=== PATIENT | female | born 1950 | race Caucasian/White ===

== ENCOUNTER 2020-05-17 10:26 | Outpatient (CLI) | payer MEDICARE, BC, SELFPAY ==
[2020-05-17 11:16] LABS: Alanine Aminotransferase 27 U/L (0-33); Albumin Level 4.3 g/dL (3.5-5.2); Alkaline Phosphatase 72 IU/L (35-105); Anion Gap 12.5 (5-19); Aspartate Amino Transferase 20 U/L (0-32); Blood Urea Nitrogen 19 mg/dL (8-23); Calcium 8.6 mg/dL (8.5-10.5); Carbon Dioxide 26 mmol/L (22-29); Chloride 100 mmol/L (98-107); Globulin 2.6 g/dL (1.3-4.6); Glomerular Filtration Rate 71.1 mL/min (90-130); Glucose 87 mg/dL (65-115); Osmolality Calculated 274 mOsm/kg (285-295); Potassium 4.5 mmol/L (3.5-5.1); Sodium 134 mmol/L (136-145); Total Bilirubin 0.4 mg/dL (0.15-1.2); Total Protein 6.9 g/dL (6.6-8.7)
== END 2020-05-17 10:27 | disposition home or self-care (01) ==
LOC: LAB 10:30
PROVIDERS: Visit Provider Internal Medicine Rheumatology
DX: M15.9 Polyosteoarthritis, unspecified (principal)
CPT/HCPCS: 80053

== ENCOUNTER 2020-10-02 10:12 | Outpatient (CLI) | payer MEDICARE, BC, SELFPAY ==
--- NOTE | 2020-10-02 10:16 | MM_ITS ---
WS: [id number] BILATERAL DIGITAL SCREENING MAMMOGRAPHY WITH CAD CLINICAL INFORMATION: SCREENING HISTORY: Screening mammogram. No current complaints. COMPARISON: [id number] TECHNIQUE: Bilateral CC and MLO views. FINDINGS: Scattered fibroglandular densities bilaterally. 6 mm asymmetric density posterior depth right breast best seen on the cc view. This is new from previous. Recommend spot compression views and ultrasound for further evaluation. Benign calcification right breast. Vascular calcifications. Left breast is unremarkable and unchanged. MM/[place] [id number] IMPRESSION: BI-RADS: 0-Incomplete: Need additional imaging evaluation FOLLOW UP: Need Additional Imaging RECOMMEND RIGHT BREAST DIAGNOSTIC MAMMOGRAPHY AND ULTRASOUND FOR FURTHER EVALUA TION.
== END 2020-10-02 10:13 | disposition home or self-care (01) ==
LOC: RADSHAW 10:15
PROVIDERS: Visit Provider Family Medicine
DX: Z12.31 Encounter for screening mammogram for malignant neoplasm of breast (principal); N64.89 Other specified disorders of breast
CPT/HCPCS: 77067

== ENCOUNTER 2020-10-24 07:51 | Outpatient (CLI) | payer MEDICARE, BC, SELFPAY ==
--- NOTE | 2020-10-24 07:57 | US_ITS ---
WS: [id number] RIGHT DIGITAL MAMMOGRAPHY WITH CAD CLINICAL INFORMATION: RT BREAST ASYMMETRY COMPARISON: October 02, 2020 TECHNIQUE: 2 views of the right breast were obtained. FINDINGS: Scattered fibroglandular densities of the right breast. Again seen is the 6 mm asymmetric density pos terior depth right breast best seen on the cc view. Benign calcifications right breast. Ultrasound is pending ULTRASOUND BREAST RIGHT TECHNIQUE: Ultrasound right breast focused area of concern. CLINICAL INFORMATION: RT BREAST ASYMMETRY COMPARISON: None. FINDINGS: Ultrasound breast right 11:00 to 1:00 position. Incidental 3 mm calcification at the 12:00 position. No evidence of underlying cystic or solid mass. No suspicious lesions. No lesions to target for biops y. US/US breast RT limited* [id number] IMPRESSION: BI-RADS: 2-Benign FOLLOW UP: 1 Year Follow-up Recommend return to annual screening mammography.
== END 2020-10-24 07:52 | disposition home or self-care (01) ==
LOC: RADSHAW 07:55
PROVIDERS: Visit Provider Family Medicine
DX: N64.89 Other specified disorders of breast (principal)
CPT/HCPCS: 76642; 77065

== ENCOUNTER → 2021-04-16 13:11 | Outpatient (BNVA) | payer MEDICARE, BC, SELFPAY | PROVIDERS: Visit Provider Podiatrist Foot & Ankle Surgery | DX: M79.673 Pain in unspecified foot (principal); M21.612 Bunion of left foot; M21.611 Bunion of right foot | CPT/HCPCS: 73630 ==

== ENCOUNTER 2021-05-09 11:30 | Outpatient (CLI) | payer MEDICARE, BC, SELFPAY | END 2021-05-09 11:31 | disposition home or self-care (01) | LOC: SPT 11:31 | PROVIDERS: Visit Provider Podiatrist Foot & Ankle Surgery | DX: Z46.89 Encounter for fitting and adjustment of other specified devices (principal); M21.611 Bunion of right foot; M21.612 Bunion of left foot; M21.621 Bunionette of right foot; M21.622 Bunionette of left foot; M20.41 Other hammer toe(s) (acquired), right foot; M20.42 Other hammer toe(s) (acquired), left foot; M21.41 Flat foot [pes planus] (acquired), right foot; M21.42 Flat foot [pes planus] (acquired), left foot | CPT/HCPCS: 97760; L3030 ==

== ENCOUNTER 2021-10-17 13:44 | Outpatient (CLI) | payer MEDICARE, BC, SELFPAY ==
--- NOTE | 2021-10-17 13:58 | MM_ITS ---
WS: [id number] BILATERAL SCREENING DIGITAL MAMMOGRAM WITH CAD HISTORY: SCREENING COMPARISON: 10/24/2020 and 10/02/2020 and 08/16/2019 Bilateral CC and MLO views submitted. Computer aided detection analyzed. Breast composition: There are scattered areas of fibroglandular density. No suspicious masses, microc alcifications or architectural distortion. Benign coarse calcifications in each breast. There are mul tiple small lymph nodes in the LEFT axilla which have been present on prior studies with no interval change. MM/[place] [id number] IMPRESSION: BI-RADS: 2-Benign FOLLOW UP: 1 Year Follow-up
== END 2021-10-17 13:45 | disposition home or self-care (01) ==
LOC: RADSHAW 13:56
PROVIDERS: Visit Provider Family Medicine
DX: Z12.31 Encounter for screening mammogram for malignant neoplasm of breast (principal)
CPT/HCPCS: 77067

== ENCOUNTER → 2021-12-01 08:52 | Outpatient (BNVA) | payer MEDICARE, BC, SELFPAY | PROVIDERS: Visit Provider Podiatrist Foot & Ankle Surgery | DX: Z01.818 Encounter for other preprocedural examination (principal); Z20.822 Contact with and (suspected) exposure to COVID-19; M21.611 Bunion of right foot; M21.612 Bunion of left foot; M21.621 Bunionette of right foot; M21.622 Bunionette of left foot; M20.41 Other hammer toe(s) (acquired), right foot; M20.42 Other hammer toe(s) (acquired), left foot; M21.41 Flat foot [pes planus] (acquired), right foot; M21.42 Flat foot [pes planus] (acquired), left foot | CPT/HCPCS: 87635 ==

== ENCOUNTER 2021-12-05 05:49 | Day surgery (SDC) | payer MEDICARE, BC, SELFPAY ==
[2021-12-04 14:28] VITALS: BMI 23.3
--- NOTE | 2021-12-05 | SCC_ITS ---
Procedure done: Bunionectomy left foot 4 seconds of fluoroscopic guidance, for a cumulative dose of 0.085 mGy, was provided to Dr. Pyle by the radiology department. C-arm images of the left foot were saved for the patient's permanent record. [facility]
--- NOTE | 2021-12-05 06:35 | ANES.PREANE2 ---
Pre-Anesthetic Assessment Height/Weight: Height 1.68 m Weight 65.771 kg Preop Diagnosis: Left painful bunion Operation Date: 12/05/21 07:00 Proposed Procedures p Bunionectomy 68329/m21.612(Left) - Rory Pyle DPM s Double Osteotomy(Left) - Rory Pyle DPM Familial anesthetic complications: none Was Beta Jacinta taken within 24 hours: N/A Was Clonidine taken within 24 hours: N/A Last intake: Intake Last Liquid Date 12/04/21 Last Liquid Time 14:00 Last Solid Date 12/04/21 Last Solid Time 14:00 Social Alcohol (wine w/ dinner) and No alcohol Exam alert, oriented x 3, clear to auscultation bilaterally and regular rate & rhythm Airway Mallampati: Class I Dentition: full Pulmonary None reported CV/HEM None reported None reported Hepatic None reported GI None reported Metabolic None reported Musc/skel None reported Neuropsych None reported Anesthetic Plan ASA status: 1 Anesthesia: MAC Risk of > 500 ml blood loss (7ml/kg in children): No Medications/Allergies Home Medications Medication Instructions Recorded Confirmed Last Taken Type Sole supports #1 ea 04/16/21 12/01/21 Unknown Rx meloxicam 15 mg tablet 15 mg PO DAILY 04/16/21 12/04/21 12/04/21 History Sole supports #1 ea 04/17/21 12/01/21 Unknown Rx oxycodone-acetaminophen 10 mg-325 1 tab PO Q6H PRN 7 Days #28 tab 12/01/21 12/05/21 Unknown Rx mg tablet (Percocet) Allergies Allergy/AdvReac Type Severity Reaction Status Date / Time No Known Allergies Allergy Verified 12/01/21 08:32 [facility] Anesthesia Medical History Arthritis Social History Smoking and tobacco status: never smoked Data Anesthesia Cardiac Studies: No Data to Display
[2021-12-05] MEDS: sodium chloride 0.9% 1,000 ML 30 ML IV (06:39)
--- NOTE | 2021-12-05 06:40 | W.PM.OPSUD ---
Surgery/Procedure H&P Update DATE OF PROCEDURE: December 05, 2021 DATE H&P PERFORMED: 12/01/21 CHANGES TO PREVIOUS DOCUMENTATION: none PREOP DIAGNOSIS: Left painful bunion PLANNED PROCEDURE: Operation Date: 12/05/21 07:00 Proposed Procedures p Bunionectomy 38372/m21.612(Left) - Rory Pyle DPM s Double Osteotomy(Left) - Rory Pyle DPM
[2021-12-05] MEDS: CELEcoxib 200 mg Capsule 400 MG PO (06:46)
[2021-12-05] MEDS: gabapentin 300 mg Capsule PO (06:47)
--- NOTE | 2021-12-05 06:53 | XR_ITS ---
WS: [id number] Exam: XR foot LT min 3V* [id number] Date/Time of Exam: 12/05/2021 8:51 AM Reason For Exam: post op Comparison 04/16/2021. There is an osteotomy involving the medial distal first metatarsal with a single screw in place in th e metatarsal. There is also an osteotomy with plate and screw fixation involving the proximal phalanx of the first digit. Alignment appears satisfactory. No other postoperative changes are noted. [employer] Grade Mathematics Teacher ior calcaneal spur. XR/XR foot LT min 3V* [id number] IMPRESSION: 1. Postoperative changes of bunion repair. Alignment appears satisfactory.
--- NOTE | 2021-12-05 06:54 | P.OP_ITS ---
Operative Report Date of procedure: December 05, 2021 Pre-op diagnosis: Bunion left foot Post-op diagnosis: Same Procedure done: Bunionectomy left foot Specimens removed/disposition: None Pathology: None Surgeon: Rory Pyle D.P.M. Receptionist Nurse: Sussy Estimated blood loss: 5 See intraoperative documentation, approximately 53 minutes IV fluids: 0 Urine output: None Complications: None Brief History: Patient is a pleasant 71-year-old female who has had progressive pain with her left bunion deformity that is no longer alleviated by wide accommodative shoes, orthotics, stretching, activity modifications and NSAIDs [id number]. Would like to proceed with surgical intervention. Risks include pain, bleeding, nu mbness, infection, chronic swelling, surgical site dehiscence, delayed union, malunion, nonunion, transfer pressure, altered mechanics, damage to adjacent soft tissue structures, hallux varus, decreased range of motion at the first metatarsophalangeal joint. Need for further surgical intervention. Patient is agreeable wishes to proceed. N.p.o. since midnight. Covid screen negative. Informed consent signed by patient and myself. I initialed her left lower extremity. No guarantees written, expressed or implied. Patient wishes to proceed. She is accompanied by her . Procedure: Under mild sedation the patient was brought to the operating room and remained on the gurney in supine position. A timeout was performed. Anesthesia was then administered by the anesthesia service. Local anesthesia injected by myself consisting of 20 cc of 0.5% Marcaine plain. Well-padded pneumatic tourniquet applied to the left ankle. The left lower extremity was then scrubbed, prepped and draped utilizing normal aseptic technique. Left foot was then exanguinated with a Esmarch bandage and a tourniquet inflated to 250 mmHg. Attention was directed to the left bunion deformity where a linear longitudinal incision was made medial and parallel to the extensor houses longus tendon at the left foot transversing the metatarsophalangeal joint through skin with dissection carried down through subcutaneous tissue to the layer of periosteum and joint capsule utilizing accommodation of blunt and sharp technique. Care was taken to retract and preserve neurovascular and tendinous structures. All bleeders were ligated and cauterized as necessary. Linear capsulotomy was performed in the head of the first metatarsal and base of the proximal phalanx were freed from their soft tissue attachments. Attention was then directed to the left first intermetatarsal space where a lateral release was performed through minimal incision dorsally. This incision was flushed and closed with 4- 0 nylon. Attention was then redirected to the medial aspect of the left first metatarsal head where the osseous prominence and hypertrophic bone was transected utilizing a sagittal saw this was passed in operative field. Next a guidewire was inserted into the medial aspect of the first metatarsal head from medial to lateral to act as an axis guide followed by a chevron osteotomy with the apex pointed distally through and through. The head of the first metatarsal was translated laterally in a more anatomic corrected position followed by fixation utilizing standard AO technique from dorsal proximal to plantar distal not relating the first metatarsophalangeal joint utilizing a [place] 28 3.0 headed 18 mm screw with excellent bony apposition and compression noted. The remaining shelf medially was transected and all rough edges were smoothed followed by flush of saline solution. Attention was then directed to the diaphyseal portion of the left proximal phalanx of the great toe where a Chandler osteotomy was performed maintaining a lateral cortical hinge and fixation utilizing a 10 mm step-off [place] 28 staple with excellent bony apposition and compression noted. The hallux was in a rectus position and the bunion deformity reduced. Positioning of hardware confirmed excellent placement without violating the first metatarsophalangeal joint all three planes utilizing intraoperative fluoroscopy. The medial incision was flushed with saline solution and closed in a layered fashion with capsule and periosteum reapproximated with 3-0 Vicryl, subcutaneous tissue reapproximated with 4-0 Vicryl and skin closed with 4-0 nylon. Exparel infiltrated in a grid like fashion total of 10 cc of Exparel expanded with additional 10 cc of Marcaine. Incision was then dressed with Adaptic, sterile 4 x 4, Kerlix, Jamal wrap and cam boot was applied. Tourniquet was then deflated and a prompt hyperemic response was noted to the distal digits of the left foot. Patient tolerated the procedure and anesthesia well and was transferred to the PACU with vital signs stable and vascular status intact. Following a period of postoperative monitoring she will be discharged home was given at home care instructions as well as my cell phone number to contact me with any questions or concerns.
[2021-12-05 08:13] VITALS: BP 152/79; PULSE 71; RESP 11; TEMP 36.1; O2SAT 98
[2021-12-05 08:18] VITALS: BP 147/112; PULSE 79; RESP 16; O2SAT 96
[2021-12-05 08:23] VITALS: BP 146/125; PULSE 73; RESP 16; TEMP 36.4; O2SAT 97
[2021-12-05 08:31] VITALS: BP 163/83; PULSE 73; RESP 16; TEMP 36.6; O2SAT 94
[2021-12-05 08:44] VITALS: BP 157/87; PULSE 70; RESP 16; TEMP 36.6; O2SAT 97
--- NOTE | 2021-12-05 09:12 | SUR.PHASEII ---
09 pt unable to wear pants with cam boot and sent to house to get skirt from home 916 pt still awaiting for something to wear preferable a skirt so the cam boot will fit to go home
--- NOTE | 2021-12-05 12:40 | ANE.PACU2 ---
Inpatient post-anesthesia follow up: Airway intact: Yes Vital signs: Temperature 97.8 F Pulse Rate 70 Respiratory Rate 16 Blood Pressure 157/87 Pulse Oximetry 97 Oxygen Delivery Me thod Room Air Oxygen Flow Rate Fraction of Inspir ed Oxygen Hydration adequate: Yes Nausea and vomiting: No Pain level: 2 Mental status: Baseline
== END 2021-12-05 09:35 | disposition home or self-care (01) ==
PROVIDERS: Visit Provider Podiatrist Foot & Ankle Surgery
PROC: (CPT 28297; principal; 2021-12-05 07:00)
PROC: (CPT 28299; 2021-12-05 07:00)
DX: M21.612 Bunion of left foot (principal)
CPT/HCPCS: 28299; 73630; 76000; C1713; C9290; J0690; J2250; J2704; J3490; J7030

== ENCOUNTER → 2021-12-24 08:25 | Outpatient (BNVA) | payer MEDICARE, BC, SELFPAY | PROVIDERS: Visit Provider Podiatrist Foot & Ankle Surgery | DX: Z48.89 Encounter for other specified surgical aftercare (principal) | CPT/HCPCS: 73630 ==

== ENCOUNTER → 2022-01-01 13:22 | Outpatient (BNVA) | payer MEDICARE, BC, SELFPAY | PROVIDERS: Visit Provider Podiatrist Foot & Ankle Surgery | DX: Z48.89 Encounter for other specified surgical aftercare (principal); Z01.818 Encounter for other preprocedural examination | CPT/HCPCS: 73630 ==

== ENCOUNTER → 2022-01-15 12:50 | Outpatient (BNVA) | payer MEDICARE, BC, SELFPAY | PROVIDERS: Visit Provider Podiatrist Foot & Ankle Surgery | DX: Z98.890 Other specified postprocedural states (principal); M21.611 Bunion of right foot; M21.612 Bunion of left foot; M21.621 Bunionette of right foot; M21.622 Bunionette of left foot; M20.41 Other hammer toe(s) (acquired), right foot; M20.42 Other hammer toe(s) (acquired), left foot; M21.41 Flat foot [pes planus] (acquired), right foot; M21.42 Flat foot [pes planus] (acquired), left foot | CPT/HCPCS: 73630 ==

== ENCOUNTER → 2022-02-19 14:24 | Outpatient (BNVA) | payer MEDICARE, BC, SELFPAY | PROVIDERS: Visit Provider Podiatrist Foot & Ankle Surgery | DX: L60.3 Nail dystrophy (principal) | CPT/HCPCS: 73630; 99213 ==

== ENCOUNTER 2022-06-01 12:02 | Outpatient (CLI) | payer MEDICARE, BC, SELFPAY ==
--- NOTE | 2022-06-01 12:10 | USCV_ITS ---
Martha Chaudhry Age: 72 Gender: F : 1950 Exam Date: 06/01/2022 12:43 Ordering Phys: Sonam Gonzales MD Technologist: Zoe Nelson Exam Location: [facility] [place] Indication: Murmur previously undiagnosed BP: 137 / 80 HR: 70 Rhythm: Sinus Technical Quality: Adequate MEASUREMENTS (Male / Female) Normal Values 2D ECHO LV Diastolic Diameter PLAX 4.0 cm 4.2 - 5.9 / 3.9 - 5.3 cm LV Systolic Diameter PLAX 2.4 cm IVS Diastolic Thickness 0.9 cm 0.6 - 1.0 / 0.6 - 0.9 cm IVS Systolic Thickness 1.2 cm LVPW Diastolic Thickness 1.0 cm 0.6 - 1.0 / 0.6 - 0.9 cm LVPW Systolic Thickness 1.1 cm LVOT Diameter 2.0 cm LV Ejection Fraction 2D Teich 72.0 % LV Ejection Fraction MOD 2C 75.5 % LV Ejection Fraction 2C AL 77.5 % LA Diameter 3.5 cm LA Width 2.9 cm LA Height 5.0 cm RA Width 3.3 cm RA Height 5.5 cm Aorta at Sinotubular Diameter 2.5 cm IVC Diameter 2.1 cm M-MODE MV E Point Septal Separation 0.5 cm DOPPLER AV Peak Velocity 245.7 cm/s LVOT Peak Velocity 128.0 cm/s AV Area Cont Eq vti 1.5 cm squared AV Area Cont Eq pk 1.6 cm squared MV Peak Velocity 108.0 cm/s MV Area PHT 3.3 cm squared Mitral E to A Ratio 1.1 MV E' Velocity 108.0 cm/s TR Peak Velocity 117.0 cm/s TR Peak Gradient 5.5 mmHg Right Atrial Pressure 3.0 mmHg Pulmonary Artery Systolic Pressu 8.5 mmHg PV Peak Velocity 77.0 cm/s RV Acceleration Time 0.1 s RV Ejection Time 0.3 s RV AcT/ET 0.3 FINDINGS Left Ventricle Normal left ventricular size. LV systolic function is normal with EF of 55-60%. No regional wall motion abnormalities. Right Ventricle The right ventricle is normal in size and function. Right Atrium The right atrium is normal in size. Left Atrium The left atrium is normal in size. Mitral Valve Mitral valve is thickened. Trace mitral regurgitation. Aortic Valve Aortic valve is thickened. Mild aortic regurgitation. Mild aortic stenosis with aortic valve area 1.6 cm squared and a mean gradient across mitral valve of 11.5 mmHg. Tricuspid Valve Mild tricuspid regurgitation. Insufficient TR jet to calculate RVSP. Pulmonic Valve Not well-visualized. Mild pulmonic regurgitation. Pericardium Normal pericardium without effusion. Aorta Normal ascending aorta dimension. IVC CONCLUSIONS LV systolic function is normal with EF of 55 to 60%. Mitral valve is thickened. Trace mitral regurgitation. Aortic valve is thickened. Mild aortic regurgitation. Mild aortic stenosis. Mild tricuspid regurgitation. Mild pulmonic regurgitation. No comparison studies are available Nahum Smart MD (Electronically Signed) Final Date: 11 June 2022 11:48 S
== END 2022-06-01 12:03 | disposition home or self-care (01) ==
LOC: RAD 12:03
PROVIDERS: Visit Provider Family Medicine
DX: R01.1 Cardiac murmur, unspecified (principal); I08.3 Combined rheumatic disorders of mitral, aortic and tricuspid valves
CPT/HCPCS: 93306

== ENCOUNTER → 2022-08-03 08:05 | Outpatient (BNVA) | payer MEDICARE, BC, SELFPAY | PROVIDERS: Visit Provider Podiatrist Foot & Ankle Surgery | DX: M21.611 Bunion of right foot (principal) | CPT/HCPCS: 73630; 99213; 99215 ==

== ENCOUNTER 2022-08-28 08:50 | Day surgery (SDC) | payer MEDICARE, BC, SELFPAY ==
[2022-08-28] VITALS (10 sets, daily range): BP systolic 100–143; BP diastolic 54–77; PULSE 62–88; RESP 12–18; TEMP 36.6–36.9; O2SAT 94–100
--- NOTE | 2022-08-28 | SCC_ITS ---
Procedure done: Bunionectomy with double osteotomy, right foot. CPT code 83682 3 seconds of fluoroscopic guidance, for a cumulative dose of 0.062 mGy, was provided to Dr. Pyle by the radiology department. C-arm images of the foot were saved for the patient's permanent record. [facility]
--- NOTE | 2022-08-28 | XR_ITS ---
WS: [id number] C-ARM RADIOGRAPHS RIGHT FOOT; 2 IMAGES HISTORY: Bunionectomy with double osteotomy, right foot. COMPARISON: 08/03/2022 Intraoperative imaging during bunionectomy. XR/XR foot RT 2V [id number] IMPRESSION: Intraoperative imaging during bunionectomy.
--- NOTE | 2022-08-28 09:27 | P.ANESASSM_ITS ---
Pre-Anesthetic Assessment Height/Weight: Height 1.68 m Weight 63.503 kg Preop Diagnosis: Right bunion Operation Date: 08/28/22 10:15 Proposed Procedures p Right bunionectomy with double osteotomy 14465,M20.11,M21.612(Right) - Rory Pyle DPM s Double Osteotomy(Right) - Rory Pyle DPM Familial anesthetic complications: NOne Was Beta Jacinta taken within 24 hours: N/A Was Clonidine taken within 24 hours: N/A Last intake: > 8hrs Social Alcohol (1 drink a night) and No tobacco Exam alert, oriented x 3, clear to auscultation bilaterally and regular rate & rhythm murmur Airway Mallampati: Class II Dentition: full CV/HEM Echo 22 - Ef 60%, trace MVR, Mild AVR and , Mild TVR and PVR Anesthetic Plan ASA status: 2 Anesthesia: MAC Risk of > 500 ml blood loss (7ml/kg in children): No Medications/Allergies Home Medications Medication Instructions Recorded Confirmed Last Taken Type Sole supports #1 ea 04/16/21 08/03/22 Unknown Rx meloxicam 15 mg tablet 15 mg PO DAILY 04/16/21 08/28/22 08/27/22 History Sole supports #1 ea 04/17/21 08/03/22 Unknown Rx Allergies Allergy/AdvReac Type Severity Reaction Status Date / Time No Known Allergies Allergy Verified 08/03/22 08:00 [facility] Anesthesia Medical History Arthritis Social History Smoking and tobacco status: never smoked Data Anesthesia Cardiac Studies: Echocardiogram 06/01/22
[2022-08-28] MEDS: sodium chloride 0.9% 1,000 ML 30 ML IV (09:30)
[2022-08-28] MEDS: gabapentin 300 mg Capsule PO (09:31)
[2022-08-28] MEDS: CELEcoxib 200 mg Capsule 400 MG PO (09:32)
--- NOTE | 2022-08-28 09:50 | W.PM.OPSUD ---
Surgery/Procedure H&P Update DATE OF PROCEDURE: August 28, 2022 DATE H&P PERFORMED: 08/03/22 CHANGES TO PREVIOUS DOCUMENTATION: None PREOP DIAGNOSIS: Right bunion PLANNED PROCEDURE: Operation Date: 08/28/22 10:15 Proposed Procedures p Right bunionectomy with double osteotomy 40456,M20.11,M21.612(Right) - Rory Pyle DPM s Double Osteotomy(Right) - Rory Pyle DPM
[2022-08-28] MEDS: ceFAZolin 2,000 MG in sodium chloride 0.9% (plus) 50 ML 100 MG IV (10:06)
[2022-08-28] MEDS: HYDROcodone-acetaminophen 5-325 mg Tablet 1 TAB PO (12:25)
--- NOTE | 2022-08-28 12:37 | ANE.PACU2 ---
Inpatient post-anesthesia follow up: Airway intact: Yes Vital signs: Temperature 98.4 F Pulse Rate 66 Respiratory Rate 16 Blood Pressure 143/74 Pulse Oximetry 96 Oxygen Delivery Me thod Room Air Oxygen Flow Rate 10 Fraction of Inspir ed Oxygen Hydration adequate: Yes Nausea and vomiting: No Pain level: 1 Mental status: Baseline
--- NOTE | 2022-08-28 16:07 | P.OP_ITS ---
Operative Report Date of procedure: August 28, 2022 Pre-op diagnosis: Preop Diagnosis Right bunion Procedure: Date of procedure: 08/28/2022 Pre-op diagnosis: Bunion right foot Post-op diagnosis: Same Procedure done: Bunionectomy with double osteotomy, right foot. CPT code 03910 Specimens removed/disposition: None Pathology: None Surgeon: Rory Pyle D.P.M. Motor Vehicle Inspector: Ann Estimated blood loss: 5 See intraoperative documentation, approximately 39 minutes IV fluids: 0 Urine output: None Complications: None Brief History: Patient is a pleasant 72-year-old female who has had progressive pain with her right bunion deformity that is no longer alleviated by wide accommodative shoes, orthotics, stretching, activity modifications and NSAIDs [id number]. Would like to proceed with surgical intervention. Risks include pain, bleeding, numbness, infection, chronic swelling, surgical site dehiscence, delayed union, malunion, nonunion, transfer pressure, altered mechanics, damage to adjacent soft tissue structures, hallux varus, decreased range of motion at the first metatarsophalangeal joint. Need for further surgical intervention. Patient is ag reeable wishes to proceed. N.p.o. since midnight. Informed consent signed by patient and myself. I initialed her right lower extremity. No guarantees written, expressed or implied. Patient wishes to proceed. She is accompanied by her . Procedure: Under mild sedation the patient was brought to the operating room and remained on the gurney in supine position. A timeout was performed. Anesthesia was then administered by the anesthesia service. Local anesthesia injected by myself consisting of 2:1 mixture 0.5% Marcaine plain and Exparel. Well-padded pneumatic tourniquet applied to the right ankle. The right lower extremity was then scrubbed, prepped and draped utilizing normal aseptic technique. Right foot was then exanguinated with a Esmarch bandage and a tourniquet inflated to 250 mmHg. Attention was directed to the right bunion deformity where a linear longitudinal incision was made medial and parallel to the extensor houses longus tendon at the right foot transversing the metatarsophalangeal joint through skin with dissection carried down through subcutaneous tissue to the layer of periosteum and joint capsule utilizing accommodation of blunt and sharp technique.? Care w as taken to retract and preserve neurovascular and tendinous structures.? All bleeders were ligated and cauterized as necessary.? Linear capsulotomy was performed in the head of the first metatarsal and base of the proximal phalanx were freed from their soft tissue attachments.? Attention was then directed to the right first intermetatarsal space where a lateral release was performed through minimal incision dorsally.? This incision was flushed and closed with 4- 0 nylon.? Attention was then redirected to the medial aspect of the right first metatarsal head where the osseous prominence and hypertrophic bone was transected utilizing a sagittal saw this was passed in operative field.? Next a guidewire was inserted into the medial aspect of the first metatarsal head from medial to lateral to act as an axis guide followed by a chevron osteotomy with the apex pointed distally through and through.? The head of the first metatarsal was translated laterally in a more anatomic corrected position followed by fixation utilizing standard AO technique from dorsal proximal to plantar distal not relating the first metatarsophalangeal joint utilizing a [place] 28 3.0 headed 18 mm screw with excellent bony apposition and compression noted.? The remaining shelf medially was transected and all rough edges were smoothed followed by flush of saline solution.? Attention was then directed to the diaph yseal portion of the right proximal phalanx of the great toe where a Chandler osteotomy was performed maintaining a lateral cortical hinge and fixation utilizing a 10 mm step-off [place] 28 staple with excellent bony apposition and compression noted.? The hallux was in a rectus position and the bunion deformity reduced.? Positioning of hardware confirmed excellent placement without violating the first metatarsophalangeal joint all three planes utilizing intraoperative fluoroscopy.? The medial incision was flushed with saline solution and closed in a layered fashion with capsule and periosteum reap proximated with 3-0 Vicryl, subcutaneous tissue reapproximated with 4-0 Vicryl and skin closed with 4-0 nylon.? Exparel infiltrated in a grid like fashion total of 10 cc of Exparel expanded with additional 10 cc of Marcaine.? Incision was then dressed with Adaptic, sterile 4 x 4, Kerlix, Jamal wrap and cam boot was applied.? Tourniquet was then deflated and a prompt hyperemic response was noted to the distal digits of the right foot.? Patient tolerated the procedure and anesthesia well and was transferred to the PACU with vital signs stable and vascular status intact.? Following a period of postoperative monitoring she will be discharged home was given at home care instructions as well as my cell phone number to contact me with any questions or concerns.
== END 2022-08-28 12:35 | disposition home or self-care (01) ==
PROVIDERS: PCP Family Medicine; Visit Provider Podiatrist Foot & Ankle Surgery
PROC: (CPT 28298; principal; 2022-08-28 10:05)
PROC: (CPT 28299; 2022-08-28 10:05)
DX: M21.611 Bunion of right foot (principal); M19.90 Unspecified osteoarthritis, unspecified site
CPT/HCPCS: 28299; 73620; 76000; C1713; C9290; J0690; J2704; J3010; J3490; J7030

== ENCOUNTER → 2022-09-11 10:10 | Outpatient (BNVA) | payer MEDICARE, BC, SELFPAY | PROVIDERS: PCP Family Medicine; Visit Provider Podiatrist Foot & Ankle Surgery | DX: Z98.890 Other specified postprocedural states (principal) | CPT/HCPCS: 73630; 99024 ==

== ENCOUNTER → 2022-09-24 14:12 | Outpatient (BNVA) | payer MEDICARE, BC, SELFPAY | PROVIDERS: PCP Family Medicine; Visit Provider Podiatrist Foot & Ankle Surgery | DX: Z98.890 Other specified postprocedural states (principal); M21.611 Bunion of right foot | CPT/HCPCS: 73630; 99024 ==

== ENCOUNTER → 2022-10-15 13:40 | Outpatient (BNVA) | payer MEDICARE, BC, SELFPAY | PROVIDERS: PCP Family Medicine; Visit Provider Podiatrist Foot & Ankle Surgery | DX: Z98.890 Other specified postprocedural states (principal); M21.611 Bunion of right foot | CPT/HCPCS: 73630; 99024 ==

== ENCOUNTER 2022-11-16 08:55 | Outpatient (CLI) | payer MEDICARE, BC, SELFPAY ==
--- NOTE | 2022-11-16 09:02 | MM_ITS ---
WS: [id number] BILATERAL SCREENING DIGITAL TOMOSYNTHESIS MAMMOGRAM WITH CAD HISTORY: SCREENING COMPARISON: 10/17/2021, 10/02/2020 and 07/22/2018 Bilateral CC and MLO views with tomosynthesis and synthetic mammography submitted. Computer aided det ection analyzed. Breast composition: There are scattered areas of fibroglandular density. No suspicious masses, microc alcifications or architectural distortion. Breast arterial calcifications. MM/[place] [id number] IMPRESSION: BI-RADS: 2-Benign FOLLOW UP: 1 Year Follow-up
== END 2022-11-16 08:56 | disposition home or self-care (01) ==
LOC: RAD 08:57
PROVIDERS: PCP Family Medicine; Visit Provider Family Medicine
DX: Z12.31 Encounter for screening mammogram for malignant neoplasm of breast (principal)
CPT/HCPCS: 77063; 77067

== ENCOUNTER → 2023-10-20 08:51 | Outpatient (BNVA) | payer MEDICARE, BC, SELFPAY | PROVIDERS: PCP Family Medicine; Visit Provider Podiatrist Foot & Ankle Surgery | DX: M21.611 Bunion of right foot; M21.612 Bunion of left foot; M21.621 Bunionette of right foot; M21.622 Bunionette of left foot; M20.41 Other hammer toe(s) (acquired), right foot; M20.42 Other hammer toe(s) (acquired), left foot; M21.41 Flat foot [pes planus] (acquired), right foot; M21.42 Flat foot [pes planus] (acquired), left foot | CPT/HCPCS: 99213 ==

== ENCOUNTER 2023-11-17 12:53 | Outpatient (CLI) | payer MEDICARE, BC, SELFPAY ==
--- NOTE | 2023-11-17 13:00 | MM_ITS ---
WS: [id number] BILATERAL 3D TOMOSYNTHESIS DIGITAL SCREENING MAMMOGRAPHY WITH CAD CLINICAL INFORMATION: SCREENING HISTORY: Screening mammogram. No current complaints. COMPARISON: 2022 TECHNIQUE: Bilateral CC and MLO views. FINDINGS: Scattered fibroglandular densities bilaterally. No suspicious focal mass, asymmetry, calcifications, or architectural distortion. No evidence of malignancy. Vascular calcification. A few punctate and alessandro cent centered calcifications. IMPRESSION: MM/[place] [id number] BI-RADS: 2-Benign FOLLOW UP: 1 Year Follow-up Recommend return to annual screening mammography.
== END 2023-11-17 12:54 | disposition home or self-care (01) ==
LOC: RAD 12:54
PROVIDERS: PCP Family Medicine; Visit Provider Family Medicine
DX: Z12.31 Encounter for screening mammogram for malignant neoplasm of breast (principal); R92.323 Mammographic fibroglandular density, bilateral breasts
CPT/HCPCS: 77063; 77067

== ENCOUNTER 2023-11-30 14:56 | Outpatient (CLI) | payer MEDICARE, BC, SELFPAY | END 2023-11-30 14:57 | disposition home or self-care (01) | LOC: SPT 14:58 | PROVIDERS: PCP Family Medicine; Visit Provider Podiatrist Foot & Ankle Surgery | DX: Z46.89 Encounter for fitting and adjustment of other specified devices (principal); M21.611 Bunion of right foot; M21.612 Bunion of left foot; M21.621 Bunionette of right foot; M21.622 Bunionette of left foot; M20.41 Other hammer toe(s) (acquired), right foot; M20.42 Other hammer toe(s) (acquired), left foot; M21.41 Flat foot [pes planus] (acquired), right foot; M21.42 Flat foot [pes planus] (acquired), left foot | CPT/HCPCS: 97760; L3030 ==

== ENCOUNTER 2023-12-28 14:50 | Outpatient (CLI) | payer MEDICARE, BC, SELFPAY ==
--- NOTE | 2023-12-28 15:00 | XR_ITS ---
WS: [id number] SCREENING DEXA SCAN CRAVE CLINICAL INFORMATION: postmenopausal COMPARISON: 2019. FINDINGS: The L1-L4 bone mineral density measures 1.471 g/cm2. This corresponds to a T score score of 2.4 and Z score of 4.1. Left femoral neck bone mineral density measures 0.961 g/cm2. This corresponds to a T score of -0.4 an d Z score of 1.2. Right femoral neck bone mineral density measures 0.949 g/cm2. This corresponds to a T score -0.5of an d Z score of 1.1. Mean femoral neck bone mineral density measures 0.955 g/cm2. This corresponds to a T score of -0.4 an d Z score of 1.1. IMPRESSION: Normal bone mineralization lumbar spine. Normal bone mineralization femoral necks. Patient's FRAX calculated 10 year probability for major osteoporotic fracture is 10.4% and osteoporot ic hip fracture is 1.6%. Bone mineral density lumbar spine increased 2.4% Bone mineral density femoral necks decreased -0.7%
== END 2023-12-28 14:51 | disposition home or self-care (01) ==
LOC: RAD 14:50
PROVIDERS: PCP Family Medicine; Visit Provider Family Medicine
DX: Z12.2 Encounter for screening for malignant neoplasm of respiratory organs (principal); Z78.0 Asymptomatic menopausal state
CPT/HCPCS: 77080

== ENCOUNTER → 2023-12-30 15:59 | Outpatient (BNVA) | payer MEDICARE, BC, SELFPAY | PROVIDERS: PCP Family Medicine; Referring Provider Family Medicine; Visit Provider Internal Medicine Cardiovascular Disease | DX: R07.9 Chest pain, unspecified (principal); E78.5 Hyperlipidemia, unspecified; I35.0 Nonrheumatic aortic (valve) stenosis; R03.0 Elevated blood-pressure reading, without diagnosis of hypertension; R94.31 Abnormal electrocardiogram [ECG] [EKG] | CPT/HCPCS: 93005; 99204 ==

== ENCOUNTER 2024-01-07 12:51 | Outpatient (CLI) | payer MEDICARE, BC, SELFPAY ==
[2024-01-07 13:05] VITALS: BMI 24.0
--- NOTE | 2024-01-07 13:05 | ECG_ITS ---
[facility] Test Date: 2024-01-07 Pat Name: Martha Chaudhry Department: Room: Gender: Female P 3 [employer] Technician: Eli Stoll : 1950 Requested By: Favian Blevins Order Number: [id number] Estrellita MD: Favian Blevins M.D. Interpretive Statements NAME OF STUDY: TREADMILL STRESS TEST INDICATION: DLD/HTN, Mild Aortic Stenosis, PROCEDURE: At the baseline, the patient's blood pressure was 149/81 with a heart rate of 83. The baseline electrocardiogram showed normal sinus rhythm with normal ST-Ts. Poor R wave progression and incomplete right bundle branch block pattern. The patient exercised for 5 minutes and 57 seconds on a standard Miguelito protocol. Patient attained a maximum heart rate of 158 beats per minute(106% of the maximum predicted heart rate) with a blood pressure at the peak exercise of 192/79 mm Hg. The EKG at the peak exercise revealed no significant changes. Patient did not have any chest pain or any significant cardiac arrhythmias with the exercise During the recovery phase, there were no new changes. Occasional supraventricular and ventricular ectopics were noted Blood pressure at the end of the recovery phase was 168/87 mm Hg with a heart rate of 95 per minute. CONCLUSION: 1. No significant EKG changes with the treadmill exercise 2. No exercise-induced chest pain or cardiac 3. Slightly exercise tolerance, attained a maximum of 7 point METs Electronically Signed On 01-10-2024 9:16:08 CDT by Favian Blevins M.D. [email or web address]
[2024-01-07 13:42] VITALS: BP 168/87; PULSE 96
== END 2024-01-07 12:52 | disposition home or self-care (01) ==
LOC: CDL 12:51
PROVIDERS: PCP Family Medicine; Visit Provider Internal Medicine Cardiovascular Disease
DX: I35.0 Nonrheumatic aortic (valve) stenosis (principal)
CPT/HCPCS: 93017

== ENCOUNTER → 2024-04-07 08:19 | Outpatient (BNVA) | payer MEDICARE, BC, SELFPAY | PROVIDERS: PCP Family Medicine; Visit Provider Family Medicine | DX: Z13.6 Encounter for screening for cardiovascular disorders (principal); R03.0 Elevated blood-pressure reading, without diagnosis of hypertension; E78.5 Hyperlipidemia, unspecified | CPT/HCPCS: 80053; 80061; 85025 ==

== ENCOUNTER → 2024-07-06 13:58 | Outpatient (BNVA) | payer MEDICARE, BC, SELFPAY | PROVIDERS: PCP Family Medicine; Visit Provider Internal Medicine Cardiovascular Disease | DX: I35.0 Nonrheumatic aortic (valve) stenosis (principal); R03.0 Elevated blood-pressure reading, without diagnosis of hypertension; E78.5 Hyperlipidemia, unspecified; R94.31 Abnormal electrocardiogram [ECG] [EKG] | CPT/HCPCS: 99214 ==

== ENCOUNTER → 2024-08-31 11:29 | Outpatient (BNVA) | payer MEDICARE, BC, SELFPAY | PROVIDERS: PCP Family Medicine; Visit Provider Podiatrist Foot & Ankle Surgery | DX: L60.3 Nail dystrophy (principal) | CPT/HCPCS: 99213 ==

== ENCOUNTER → 2024-09-11 15:39 | Outpatient (BNVA) | payer MEDICARE, BC, SELFPAY | PROVIDERS: PCP Family Medicine; Visit Provider Family Medicine | DX: I10 Essential (primary) hypertension (principal); E78.5 Hyperlipidemia, unspecified | CPT/HCPCS: 80048; 80061 ==

== ENCOUNTER → 2024-09-21 08:15 | Outpatient (BNVA) | payer MEDICARE, BC, SELFPAY | PROVIDERS: PCP Family Medicine; Visit Provider Family Medicine | DX: Z79.899 Other long term (current) drug therapy (principal) | CPT/HCPCS: 80048 ==

== ENCOUNTER 2024-11-20 09:02 | Outpatient (CLI) | payer MEDICARE, BC, SELFPAY ==
--- NOTE | 2024-11-20 | MM_ITS ---
WS: [id number] BILATERAL SCREENING DIGITAL TOMOSYNTHESIS MAMMOGRAM WITH CAD HISTORY: ANNUAL SCREEN COMPARISON: 11/17/2023, 11/16/2022 Bilateral CC and MLO views with tomosynthesis and synthetic mammography submitted. Computer aided detection analyzed. Breast composition: There are scattered areas of fibroglandular density. No suspicious masses, microcalcifications or architectural distortion. Benign calcifications in each breast. Breast arterial calcifications. MM/MM scr BI tomosynthesis [id number] IMPRESSION: BI-RADS: 2 - Benign. FOLLOW UP: 1 Year Follow-up
== END 2024-11-20 09:03 | disposition home or self-care (01) ==
LOC: RAD 09:04
PROVIDERS: PCP Family Medicine; Visit Provider Family Medicine
DX: Z12.31 Encounter for screening mammogram for malignant neoplasm of breast (principal); R92.323 Mammographic fibroglandular density, bilateral breasts; R92.1 Mammographic calcification found on diagnostic imaging of breast
CPT/HCPCS: 77063; 77067

== ENCOUNTER → 2025-01-02 10:18 | Outpatient (BNVA) | payer MEDICARE, BC, SELFPAY | PROVIDERS: PCP Family Medicine; Visit Provider Internal Medicine Cardiovascular Disease | DX: I35.0 Nonrheumatic aortic (valve) stenosis (principal); E78.5 Hyperlipidemia, unspecified; I50.9 Heart failure, unspecified; R03.0 Elevated blood-pressure reading, without diagnosis of hypertension; R94.31 Abnormal electrocardiogram [ECG] [EKG] | CPT/HCPCS: 36415; 80061; 80076; 99214 ==

== ENCOUNTER 2025-02-05 11:01 | Outpatient (CLI) | payer MEDICARE, BC, SELFPAY | END 2025-02-05 11:02 | disposition home or self-care (01) | LOC: SPT 11:02 | PROVIDERS: PCP Family Medicine; Visit Provider Podiatrist Foot & Ankle Surgery | DX: Z46.89 Encounter for fitting and adjustment of other specified devices (principal); M21.41 Flat foot [pes planus] (acquired), right foot; M21.42 Flat foot [pes planus] (acquired), left foot | CPT/HCPCS: L3030 ==

== ENCOUNTER → 2025-04-25 13:06 | Outpatient (BNVA) | payer MEDICARE, BC, SELFPAY | PROVIDERS: PCP Family Medicine; Visit Provider Podiatrist Foot & Ankle Surgery | DX: L60.3 Nail dystrophy (principal); M21.41 Flat foot [pes planus] (acquired), right foot; M21.42 Flat foot [pes planus] (acquired), left foot | CPT/HCPCS: 99213 ==

== ENCOUNTER → 2025-08-27 11:15 | Outpatient (BNVA) | payer MEDICARE, BC, SELFPAY | PROVIDERS: PCP Family Medicine; Visit Provider Nurse Practitioner Family | DX: I35.0 Nonrheumatic aortic (valve) stenosis (principal); I10 Essential (primary) hypertension; E78.5 Hyperlipidemia, unspecified; R94.31 Abnormal electrocardiogram [ECG] [EKG]; I83.899 Varicose veins of unspecified lower extremity with other complications | CPT/HCPCS: 36415; 80048; 83880; 99214 ==

== ENCOUNTER 2025-09-25 06:07 | Outpatient (CLI) | payer MEDICARE, BC, SELFPAY ==
--- NOTE | 2025-09-25 06:15 | USCV_ITS ---
Martha Chaudhry Age: 75 Gender: F : 1950 Exam Date: 09/25/2025 06:27 Ordering Phys: Maria Guadalupe Lyle NP Technologist: [place] [facility] [place]: as BP: 120 / 65 HR: 79 Rhythm: Sinus Technical Quality: Adequate MEASUREMENTS (Male / Female) Normal Values 2D ECHO LV Diastolic Diameter PLAX 3.3 cm 4.2 - 5.9 / 3.9 - 5.3 cm IVS Diastolic Thickness 1.3 cm 0.6 - 1.0 / 0.6 - 0.9 cm IVS Systolic Thickness 1.6 cm LVPW Diastolic Thickness 1.5 cm 0.6 - 1.0 / 0.6 - 0.9 cm LVPW Systolic Thickness 1.9 cm LVOT Diameter 2.0 cm LV Ejection Fraction 2D Teich 58.0 % LV Ejection Fraction MOD 4C 51.3 % LV Ejection Fraction MOD 2C 54.9 % LV Ejection Fraction 2C AL 55.2 % LA Diameter 3.6 cm RA Systolic Volume 4C AL 50.8 ml RA Systolic Volume 4C MOD 48.1 ml Aorta at Sinotubular Diameter 3.2 cm IVC Diameter 2.1 cm M-MODE LA Ao Ratio MM 1.5 AV Cusp Separation MM 1.8 cm DOPPLER AV Peak Velocity 272.8 cm/s LVOT Peak Velocity 106.0 cm/s AV Area Cont Eq vti 1.6 cm squared AV Area Cont Eq pk 1.2 cm squared MV Peak Velocity 153.0 cm/s MV Area PHT 4.5 cm squared Mitral E to A Ratio 1.3 TR Peak Velocity 174.0 cm/s TR Peak Gradient 12.1 mmHg TV Peak E Velocity 118.0 cm/s PV Peak Velocity 114.0 cm/s FINDINGS Left Ventricle Normal left ventricular size and systolic function, EF 55%. Mild left ventricular hypertrophy. No regional wall motion abnormalities. Grade III/IV diastolic dysfunction (restrictive filling pattern), severely elevated filling pressures. Right Ventricle Normal right ventricular size and systolic function. Right Atrium Normal right atrial size. Left Atrium Normal left atrial size. IA Septum Normal appearance of the interatrial septum. Mitral Valve Calcification in the anterior mitral leaflet Aortic Valve [id number] aortic valve regurgitation. Mild aortic valve stenosis, mean gradient 12.9 mmHg, EMILY 1.6 cm squared. Peak velocity of 3.1 m/s with a peak gradient of 39 and mean gradient of 18 mmHg Tricuspid Valve No gross abnormalities noted. Trace tricuspid valve regurgitation. Estimated pulmonary artery peak systolic pressure within normal limits Pulmonic Valve Pulmonic valve not well visualized. Pericardium No pericardial effusion. Aorta Normal aortic annulus size. IVC Normal inferior vena cava. CONCLUSIONS Normal left ventricular size and systolic function, EF 55%. Mild left ventricular hypertrophy. No regional wall motion abnormalities. Grade III/IV diastolic dysfunction (restrictive filling pattern), severely elevated filling pressures. Calcification in the anterior mitral leaflet. [id number] aortic valve regurgitation. Mild aortic valve stenosis, mean gradient 12.9 mmHg, EMILY 1.6 cm squared. Peak velocity of 3.1 m/s with a peak gradient of 39 and mean gradient of 18 mmHg. Estimated pulmonary artery peak systolic pressure within normal limits No significant valvular abnormalities. There is no pericardial effusion. Compared to the study from 06/01/2022, there is development of aortic valve stenosis Dr Favian Blevins MD [facility] (Electronically Signed) Final Date: 26 September 2025 20:14 S
== END 2025-09-25 06:08 | disposition home or self-care (01) ==
LOC: RAD 06:08
PROVIDERS: PCP Family Medicine; Visit Provider Nurse Practitioner Family
DX: I35.0 Nonrheumatic aortic (valve) stenosis (principal); I51.7 Cardiomegaly
CPT/HCPCS: 93306